=== PATIENT | female | born 1980 | race Caucasian/White ===

== ENCOUNTER 2018-06-20 07:12 | Emergency (ER) | payer OTHER ==
[~2018-06-20] VITALS: Ht 167.6 cm; Wt 72.6 kg
[2018-06-20 07:20] VITALS: BP 142/61
--- NOTE | 2018-06-20 07:24 | ED.ADGEN ---
Past History Past Medical History: No Pertinent History Past Surgical History: No Surgical History Smoking: Non-smoker Drug Use: None Adult General Chief Complaint Chief Complaint Left elbow injury post-fall HPI HPI Patient tripped over a cat while going up stairs at 6:30 AM this morning landing on her left elbow with injury. She notes no other injury. She has tenderness at her left elbow though she has intact range of motion. Review of Systems Review of Systems Constitutional: Denies fever or chills Eyes: Denies change in visual acuity, redness, or eye pain HENT: Denies nasal congestion or sore throat Respiratory: Denies cough or shortness of breath Cardiovascular: Denies chest pain GI: Denies abdominal pain, nausea, vomiting, bloody stools or diarrhea : Denies dysuria or hematuria Musculoskeletal: Denies back pain, with left elbow tenderness, no swelling or ecchymosis intact distal neurovascular exam is intact Integument: Denies rash or skin lesions Neurologic: Denies headache, focal weakness or sensory changes Endocrine: Denies polyuria or polydipsia All other systems were reviewed and found to be within normal limits, except as documented in this note. Allergies Allergies Allergies Coded Allergies Type Severity Reaction Last Updated Verified No Known Drug Allergies 06/20/18 No Physical Exam Physical Exam Constitutional: Well developed, well nourished, no acute distress, non-toxic appearance. HENT: Normocephalic, atraumatic, bilateral external ears normal, oropharynx moist, no oral exudates, nose normal. Eyes: PERRLA, EOMI, conjunctiva normal, no discharge. Neck: Normal range of motion, no tenderness, supple, no stridor. Cardiovascular:Heart rate regular rhythm, no murmur Lungs & Thorax: Bilateral breath sounds clear to auscultation Abdomen: Bowel sounds normal, soft, no tenderness, no masses, no pulsatile masses. Skin: Warm, dry, no erythema, no rash. Back: No tenderness, no CVA tenderness. Extremities: With left elbow tenderness along the olecranon, no swelling, no ecchymosis, no cyanosis, no clubbing, ROM intact, no edema. Neurologic: Alert and oriented X 3, normal motor function, normal sensory function, no focal deficits noted. Distal sensation of left upper extremity is intact to light touch and position sense. Left hand has intact range of motion with normal thumb finger apposition. Psychologic: Affect normal, judgement normal, mood normal. Current Patient Data Vital Signs Vital Signs Date Time Temp Pulse Resp B/P (MAP) Pulse Ox O2 Delivery O2 Flow Rate FiO2 06/20/18 07:20 97.9 74 18 98 Room Air EKG EKG [] Radiology/Procedures Radiology/Procedures [address] [id number] IMAGING REPORT Signed PATIENT: TOÑA MADISON ACCOUNT: [id number] : 1980 LOCATION: ER AGE: 37 SEX: F EXAM STATUS: REG ER ORD. PHYSICIAN: JAZZ SHEA MD REASON: pain/fall PROCEDURE: ELBOW LEFT 3V Left elbow, 3 views, 06/20/2018: HISTORY: Elbow injury after a fall No fracture or dislocation is identified. There is no radiographic evidence of a joint effusion. IMPRESSION: No significant left elbow abnormality is detected. Electronically signed by: David Jovel MD (06/20/2018 7:52 AM) [facility] DICTATED AND SIGNED BY: DAVID JOVEL MD DATE: 06/20/18 0752 CC: JAZZ SHEA MD; PCP,NO ~ Course & Med Decision Making Course & Med Decision Making Patient presents with left elbow injury post-fall DDx-fracture, contusion, dislocation, sprain Patient was stable in the emergency department. DNVI. Elbow x-ray was unremarkable. No fracture or dislocation. Patient was given her x-ray results and advised follow with her primary doctor. Patient given prescription of Motrin for pain Final Impression Final Impression Clinical impression Left elbow contusion Dragangelica Disclaimer Dragon Disclaimer This electronic medical record was generated, in whole or in part, using a voice recognition dictation system. Departure Departure: Impression: Primary Impression: Left elbow contusion Disposition: 01 HOME, SELF-CARE Condition: STABLE Referrals: ELFEGO TOPETE MD Follow-up in 2 days for further evaluation Patient Instructions: Elbow Contusion, [id number] Additional Instructions: Follow-up with your primary doctor for further evaluation. If you develop worse pain, swelling, weakness, numbness return to the emergency department. Scripts Ibuprofen (IBUPROFEN) 800 Mg Tablet 1 TAB PO TID, #15 TAB Prov: JAZZ SHEA MD 06/20/18 JAZZ SHEA MD Jun 20, 2018 07:24
--- NOTE | 2018-06-20 07:55 | RAD ---
Left elbow, 3 views, 06/20/2018: HISTORY: Elbow injury after a fall No fracture or dislocation is identified. There is no radiographic evidence of a joint effusion. IMPRESSION: No significant left elbow abnormality is detected. Electronically signed by: David Brown MD (06/20/2018 7:52 AM) [facility]
[2018-06-20] MEDS ORDERED: IBUP800T19 PO (07:58)
== END 2018-06-20 08:15 | disposition home or self-care (01) ==
LOC: ER 07:12
DX: S50.02XA Contusion of left elbow, initial encounter (principal); W01.0XXA Fall on same level from slipping, tripping and stumbling without subsequent striking against object, initial encounter; Y93.89 Activity, other specified; Y92.89 Other specified places as the place of occurrence of the external cause; Y99.8 Other external cause status
CPT/HCPCS: 73080; 99284

== ENCOUNTER 2019-07-21 12:13 | Emergency (ER) | payer OTHER ==
[~2019-07-21] VITALS: Ht 167.6 cm; Wt 71.7 kg
[~2019-07-21 12:13] MED LIST: IBUP800T19 PO
[2019-07-21] MEDS ORDERED: ONDANSETRON PF 4 MG/2 ML VIAL. IV ONE (12:30)
[2019-07-21] MEDS ORDERED: IV NORMAL SALINE 1,000ML 1,000 ML IV ONE (12:30)
--- NOTE | 2019-07-21 12:49 | PHYS DOC ---
Past History Past Medical History: No Pertinent History Past Surgical History: No Surgical History Smoking: Non-smoker Alcohol Use: None Drug Use: None Adult General Chief Complaint Chief Complaint: NAUSEA/VOMITING/DIARRHEA HPI HPI 38-year-old female presents with lower abdominal pain and diarrhea. The patient started with diarrhea 4 days ago. She seems to have an episode every time she eats or drinks anything. He has had decreased appetite. On the second day, she started to have some lower abdominal cramping. Her stool has not been bloody. She has not measured a fever, but has had chills. No history of diverticulosis or diverticulitis. 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 The patient has had nausea, but no vomiting. Review of Systems Review of Systems Constitutional: Denies fever or chills [] Eyes: Denies change in visual acuity, redness, or eye pain [] HENT: Denies nasal congestion or sore throat [] Respiratory: Denies cough or shortness of breath [] Cardiovascular: No additional information not addressed in HPI [] GI: abdominal pain, nausea, diarrhea. [] : Denies dysuria or hematuria [] Musculoskeletal: Denies back pain or joint pain [] Integument: Denies rash or skin lesions [] Neurologic: Denies headache, focal weakness or sensory changes [] Endocrine: Denies polyuria or polydipsia [] All other systems were reviewed and found to be within normal limits, except as documented in this note. Current Medications Current Medications Current Medications Medications (Trade) Dose Ordered Sig/[facility] Start Time Stop Time Status Last Admin Dose Admin Ondansetron HCl (Zofran) 4 mg 1X ONCE 07/21/19 12:30 07/21/19 12:31 DC Sodium Chloride 1,000 ml @ 1,000 mls/hr 1X ONCE 07/21/19 12:30 07/21/19 13:29 Allergies Allergies Allergies Coded Allergies Type Severity Reaction Last Updated Verified No Known Drug Allergies 06/20/18 No Physical Exam Physical Exam Constitutional: Well developed, well nourished, no acute distress, non-toxic dimitris earance. [] HENT: Normocephalic, atraumatic, bilateral external ears normal, oropharynx moist, no oral exudates, nose normal. [] Eyes: PERRLA, EOMI, conjunctiva normal, no discharge. [] Neck: Normal range of motion, no tenderness, supple, no stridor. [] Cardiovascular:Heart rate regular rhythm, no murmur [] Lungs & Thorax: Bilateral breath sounds clear to auscultation [] Abdomen: Bowel sounds normal, soft, mild right lower quadrant and left lower quadrant tenderness, no masses, no pulsatile masses. [] Skin: Warm, dry, no erythema, no rash. [] Back: No tenderness, no CVA tenderness. [] Extremities: No tenderness, no cyanosis, no clubbing, ROM intact, no edema. [] Neurologic: Alert and oriented X 3, normal motor function, normal sensory function, no focal deficits noted. [] Psychologic: Affect normal, judgement normal, mood normal. [] EKG EKG [] Radiology/Procedures Radiology/Procedures [] Impressions: CT ABD PELV W/ IV CONTRST ONLY Indication: Lower abdominal pain. Exposure: One or more of the following individualized dose reduction techniques were utilized for this examination: 1. Automated exposure control 2. Adjustment of the mA and/or kV according to patient size 3. Use of iterative reconstruction technique. Technique: Intravenous contrast was given. No oral contrast per request. Comparison: None FINDINGS: Partially visualized breast implants. Lung bases are clear. Liver and spleen appear unremarkable. Pancreas appears unremarkable. No evidence of adrenal mass. Kidneys demonstrate symmetric enhancement. Low-density lesion at the upper pole the left kidney measures 14 mm and 5 Hounsfield units, most compatible with a cyst. There appears to be some scarring or deformity of the adjacent left upper pole renal tissue. There is also some low-density in the lower pole the right kidney, could represent another small lesion such as a cyst with some renal cortical atrophy. No hydronephrosis is seen. No calcified gallstone. Aorta is nonaneurysmal. No significant lymph node enlargement. No significant small bowel distention. Limited GI tract exam without oral contrast. Mild wall thickening involving most of the colon, greatest at the descending and sigmoid colon to rectum. No definite paracolonic stranding. Mild stool in the colon. The appendix, if present, is not clearly visualized. No significant pneumoperitoneum. Mild free pelvic fluid is identified, measures 4 Hounsfield units compatible with simple content. Low-density lesion in the right adnexa measuring about 3 cm and 8 Hounsfield units, compatible with an ovarian cyst. Smaller cysts or follicles in the left ovary. No definite urinary bladder abnormality. Degenerative changes at the lumbosacral junction. No acute fracture or aggressive bone destruction. IMPRESSION: 1. Mild free pelvic fluid, could be physiologic. Right adnexal lesion measuring 3 cm, most likely an ovarian cyst. 2. Low-density lesion at the upper pole of the left kidney measuring 14 mm, may represent a cyst. There is some renal cortical scarring or atrophy involving the surrounding left upper pole tissue. There are some similar changes at the lower pole of the right kidney. Therefore, nonemergent further workup with MR or ultrasound of the kidneys could be of benefit for further evaluation. 3. Diffuse colonic wall thickening, greatest at the descending and sigmoid colon to the rectum. Consider mild colitis, although nondistention could contribute to this appearance. Electronically signed by: Reymundo Chadwick MD (07/21/2019 2:19 PM) [id number] DICTATED AND SIGNED BY: REYMUNDO CHADWICK MD DATE: 07/21/19 1414 CC: MICHELLE MARTINEZ DO; PCP,UNKNOWN ~ Course & Med Decision Making Course & Med Decision Making Pertinent Labs and Imaging studies reviewed. (See chart for details) The patient's labs are unremarkable. Her urinalysis is unremarkable. She is not . Her CT scan shows possible colitis. There are also incidental findings related to her kidneys. See official report for more details. I will go in place the patient on Augmentin for 7 days presuming infectious colitis. She is stable for discharge at this time. [] Dragon Disclaimer Dragon Disclaimer This electronic medical record was generated, in whole or in part, using a voice recognition dictation system. Departure Departure: Impression: Primary Impression: Colitis Disposition: 01 HOME, SELF-CARE Condition: STABLE Referrals: PCP,UNKNOWN (PCP) Patient Instructions: Colitis Scripts Amoxicillin/Potassium Clav (AUGMENTIN 875-125 TABLET) 1 Each Tablet 1 TAB PO BID for colitis, #14 TAB Prov: MICHELLE MARTINEZ DO 07/21/19 MICHELLE MARTINEZ DO Jul 21, 2019 12:49
[2019-07-21 12:52] LABS: BASO % 1 % (0-3); EOS # 0.1 x10^3/uL (0.0-0.7); EOS % 1 % (0-3); HEMATOCRIT 41.4 % (36.0-47.0); LYMPH # 1.6 x10^3/uL (1.0-4.8); LYMPH % 28 % (24-48); MEAN CORPUSCULAR HEMOGLOBIN 32 pg (25-35); MEAN CORPUSCULAR HGB CONC 34 g/dL (31-37); MEAN CORPUSCULAR VOLUME 95 fL (79-100); MONO # 0.8 x10^3/uL (0.0-1.1); MONO % 14 % (0-9); NEUT # 3.4 x10^3uL (1.8-7.7); NEUT % 57 % (31-73); PLATELET COUNT 251 x10^3/uL (140-400); RED BLOOD COUNT 4.38 x10^6/uL (3.50-5.40); RED CELL DISTRIBUTION WIDTH 12.6 % (11.5-14.5)
[2019-07-21 13:02] LABS: BILIRUBIN,URINE NEG (NEG); CLARITY,URINE HAZY; COLOR,URINE YELLOW; GLUCOSE,URINE NEG (NEG); NITRITE,URINE NEG (NEG); UROBILINOGEN,URINE 0.2 mg/dL (0.2 mg/dL)
[2019-07-21 13:03] LABS: AMORPHOUS SEDIMENT,UR PRESENT /HPF; BACTERIA,URINE MOD /HPF (0-FEW); SQUAMOUS EPITHELIAL CELL,UR MANY /LPF
[2019-07-21 13:19] LABS: ALBUMIN 3.5 g/dL (3.4-5.0); ALBUMIN/GLOBULIN RATIO 0.9 (1.0-1.7); CALCIUM 8.6 mg/dL (8.5-10.1); CREATININE 0.9 mg/dL (0.6-1.0); GFR 70.1; POTASSIUM 3.5 mmol/L (3.5-5.1); TOTAL BILIRUBIN 0.4 mg/dL (0.2-1.0); TOTAL PROTEIN 7.3 g/dL (6.4-8.2)
[2019-07-21] MEDS ORDERED: IOHEXOL 300 MG/ML 75 ML VIAL. IV ONE (13:45)
--- NOTE | 2019-07-21 14:22 | RAD ---
CT ABD PELV W/ IV CONTRST ONLY Indication: Lower abdominal pain. Exposure: One or more of the following individualized dose reduction techniques were utilized for this examination: 1. Automated exposure control 2. Adjustment of the mA and/or kV according to patient size 3. Use of iterative reconstruction technique. Technique: Intravenous contrast was given. No oral contrast per request. Comparison: None FINDINGS: Partially visualized breast implants. Lung bases are clear. Liver and spleen appear unremarkable. Pancreas appears unremarkable. No evidence of adrenal mass. Kidneys demonstrate symmetric enhancement. Low-density lesion at the upper pole the left kidney measures 14 mm and 5 Hounsfield units, most compatible with a cyst. There appears to be some scarring or deformity of the adjacent left upper pole renal tissue. There is also some low-density in the lower pole the right kidney, could represent another small lesion such as a cyst with some renal cortical atrophy. No hydronephrosis is seen. No calcified gallstone. Aorta is nonaneurysmal. No significant lymph node enlargement. No significant small bowel distention. Limited GI tract exam without oral contrast. Mild wall thickening involving most of the colon, greatest at the descending and sigmoid colon to rectum. No definite paracolonic stranding. Mild stool in the colon. The appendix, if present, is not clearly visualized. No significant pneumoperitoneum. Mild free pelvic fluid is identified, measures 4 Hounsfield units compatible with simple content. Low-density lesion in the right adnexa measuring about 3 cm and 8 Hounsfield units, compatible with an ovarian cyst. Smaller cysts or follicles in the left ovary. No definite urinary bladder abnormality. Degenerative changes at the lumbosacral junction. No acute fracture or aggressive bone destruction. IMPRESSION: 1. Mild free pelvic fluid, could be physiologic. Right adnexal lesion measuring 3 cm, most likely an ovarian cyst. 2. Low-density lesion at the upper pole of the left kidney measuring 14 mm, may represent a cyst. There is some renal cortical scarring or atrophy involving the surrounding left upper pole tissue. There are some similar changes at the lower pole of the right kidney. Therefore, nonemergent further workup with MR or ultrasound of the kidneys could be of benefit for further evaluation. 3. Diffuse colonic wall thickening, greatest at the descending and sigmoid colon to the rectum. Consider mild colitis, although nondistention could contribute to this appearance. Electronically signed by: Maury Chadwick MD (07/21/2019 2:19 PM) [id number]
[2019-07-21] MEDS ORDERED: AMOX1TAB61 PO (14:31)
[2019-07-21 14:35] VITALS: BP 106/57
== END 2019-07-21 14:42 | disposition home or self-care (01) ==
LOC: ER 12:13
DX: K52.9 Noninfective gastroenteritis and colitis, unspecified (principal)
CPT/HCPCS: 36415; 74177; 80053; 81001; 81025; 85025; 87086; 96374; 99285; J2405; Q9967; J7030

== ENCOUNTER 2019-11-05 10:48 | Emergency (ER) | payer OTHER ==
[~2019-11-05] VITALS: Ht 167.6 cm; Wt 68.7 kg
[2019-11-05 10:48] VITALS: BP 126/79
[~2019-11-05 10:48] MED LIST changes: +AMOX1TAB61 PO
[2019-11-05] MEDS ORDERED: IV NORMAL SALINE 1,000ML 1,000 ML IV SCH (11:02)
[2019-11-05] MEDS ORDERED: HYOSCYAMINE 0.125 MG TAB.RAPDIS PO ONE (11:15)
[2019-11-05] MEDS ORDERED: KETOROLAC 30 MG/ML VIAL. IVP ONE (11:15)
--- NOTE | 2019-11-05 11:22 | PHYS DOC ---
Past History Past Medical History: Fibromyalgia, Other Past Surgical History: Appendectomy Smoking: Non-smoker Alcohol Use: None Drug Use: None Adult General Chief Complaint Chief Complaint: ABDOMINAL PAIN HPI HPI Patient is a 38-year-old female presents complaining of right lower quadrant abdominal pain that has been present for the past 2 days, it is baseline achiness but periods of sharp discomfort. She has been seen and evaluated for this twice previously with ultrasounds that did not show any acute process. 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 Movement does not seem to make it worse or better. No significant relief with 400 mg of ibuprofen. She has had some nausea without any vomiting. She notes that she has had vaginal bleeding. Her periods are irregular with her most recent one being approximately 2 weeks previous. No heavy vaginal bleeding. Part of her current outpatient evaluation is for the possibility of a hysterectomy. She denies any diarrhea. Denies any recent travel or trauma. She reports ketorolac has improved the discomfort previously.[] Review of Systems Review of Systems Constitutional: Denies fever or chills [] Eyes: Denies change in visual acuity, redness, or eye pain [] HENT: Denies nasal congestion or sore throat [] Respiratory: Denies cough or shortness of breath [] Cardiovascular: No chest pain or palpitations[] GI: The history of present illness[] : Denies dysuria or hematuria [] Musculoskeletal: Denies back pain or joint pain [] Integument: Denies rash or skin lesions [] Neurologic: Denies headache, focal weakness or sensory changes [] Endocrine: Denies polyuria or polydipsia [] All other systems were reviewed and found to be within normal limits, except as documented in this note. Allergies Allergies Allergies Coded Allergies Type Severity Reaction Last Updated Verified No Known Drug Allergies 07/21/19 No Physical Exam Physical Exam Constitutional: Well developed, well nourished, no acute distress, non-toxic appearance. [] HENT: Normocephalic, atraumatic, bilateral external ears normal, oropharynx moist, no oral exudates, nose normal. [] Eyes: PERRLA, EOMI, conjunctiva normal, no discharge. [] Neck: Normal range of motion, no tenderness, supple, no stridor. [] Cardiovascular:Heart rate regular rhythm, no murmur [] Lungs & Thorax: Bilateral breath sounds clear to auscultation [] Abdomen: Bowel sounds normal, soft, no tenderness, no masses, no pulsatile masses. [] Skin: Warm, dry, no erythema, no rash. [] Back: No tenderness, no CVA tenderness. [] Extremities: No tenderness, no cyanosis, no clubbing, ROM intact, no edema. [] Neurologic: Alert and oriented X 3, normal motor function, normal sensory function, no focal deficits noted. [] Psychologic: Affect normal, judgement normal, mood normal. [] Current Patient Data Lab Results Laboratory Tests Test 11/05/19 10:59 11/05/19 11:15 11/05/19 11:42 Urine Opiates Screen Neg Urine Methadone Screen Neg Urine Barbiturates Neg Urine Phencyclidine Screen Neg Urine Amphetamine/Methamphetamine Pos Urine Benzodiazepines Screen Neg Urine Cocaine Screen Neg Urine Cannabinoids Screen Neg Urine Ethyl Alcohol Neg Bedside Urine HCG, Qualitative hcg negative White Blood Count 14.7 x10^3/uL Red Blood Count 4.64 x10^6/uL Hemoglobin 14.4 g/dL Hematocrit 43.0 % Mean Corpuscular Volume 93 fL Mean Corpuscular Hemoglobin 31 pg Mean Corpuscular Hemoglobin Concent 34 g/dL Red Cell Distribution Width 12.6 % Platelet Count 280 x10^3/uL Neutrophils (%) (Auto) 82 % Lymphocytes (%) (Auto) 10 % Monocytes (%) (Auto) 7 % Eosinophils (%) (Auto) 1 % Basophils (%) (Auto) 0 % Neutrophils # (Auto) 12.1 x10^3uL Lymphocytes # (Auto) 1.4 x10^3/uL Monocytes # (Auto) 1.0 x10^3/uL Eosinophils # (Auto) 0.2 x10^3/uL Basophils # (Auto) 0.1 x10^3/uL Sodium Level 137 mmol/L Potassium Level 3.7 mmol/L Chloride Level 101 mmol/L Carbon Dioxide Level 28 mmol/L Anion Gap 8 Blood Urea Nitrogen 14 mg/dL Creatinine 0.8 mg/dL Estimated GFR (Cockcroft-Gault) 80.3 BUN/Creatinine Ratio 18 Glucose Level 80 mg/dL Calcium Level 9.0 mg/dL Total Bilirubin 0.6 mg/dL Aspartate Amino Transf (AST/SGOT) 22 U/L Alanine Aminotransferase (ALT/SGPT) 23 U/L Alkaline Phosphatase 89 U/L Total Protein 8.1 g/dL Albumin 4.0 g/dL Albumin/Globulin Ratio 1.0 Lipase 261 U/L Current Medications Medications (Trade) Dose Ordered Sig/Corin Route PRN Reason Start Time Stop Time Status Last Admin Dose Admin Sodium Chloride 1,000 ml @ 1,000 mls/hr Q1H IV 11/05/19 11:02 11/05/19 12:01 DC 11/05/19 11:52 Ketorolac Tromethamine (Toradol 30mg Vial) 30 mg 1X ONCE IVP 11/05/19 11:15 11/05/19 11:25 DC 11/05/19 11:52 Hyoscyamine (Anaspaz) 0.125 mg 1X ONCE PO 11/05/19 11:15 11/05/19 11:25 DC 11/05/19 11:52 EKG EKG [] Radiology/Procedures Radiology/Procedures PROCEDURE: CT ABDOMEN PELVIS WO CONTRAST Examination: CT of the abdomen pelvis without contrast HISTORY: History of right lower quadrant pain, nausea COMPARISON: 07/21/2019 TECHNIQUE: Axial CT images of the abdomen pelvis were performed without contrast. Coronal and sagittal reformats are performed. Exposure: One or more of the following individualized dose reduction techniques were utilized for this examination: 1. Automated exposure control 2. Adjustment of the mA and/or kV according to patient size 3. Use of iterative reconstruction technique FINDINGS: The bibasilar lungs are clear. No evidence of free air identified in the abdomen. The evaluation of the solid organs is limited due to lack of IV contrast. The evaluation of bowel is limited due to lack of oral contrast. The visualized noncontrasted liver, spleen, adrenals grossly appears unremarkable. Gallbladder is mildly distended. The stomach is mildly distended. The visualized pancreas grossly appears unremarkable. The small bowel is nondilated The appendix could not be identified. Feces and gas noted in the colon. Urinary bladder is mildly distended. No evidence of intrarenal collecting system calculi identified. Mild prominent appearing right ureter without obvious ureter calculus, however evaluation is limited due to multiple bowel loops which limits evaluation of the distal ureters. No evidence of lytic bony destructive lesion. IMPRESSION: 1. Questionable minimal prominence of the right ureter without obvious ureteral calculus. Evaluation of the ureters is limited due to multiple bowel loops. Urinary tract infection is not completely excluded. 2. The appendix is not identified.[] Course & Med Decision Making Course & Med Decision Making Pertinent Labs and Imaging studies reviewed. (See chart for details) Emergency department course: Patient arrived, was placed in bed, and tolerated exam well. IV access established, she was given IV fluids and pain medicines. She was transported to and from radiology with any complications. After return of laboratory and imaging findings, these were discussed with the patient voiced understanding. She did get some pain control with the medications administered. She was discharged in improved condition. Medical decision making: There is no evidence of an obstruction, perforation, kidney stone, urinary tract infection or pyelonephritis. No evidence of uncontrollable pain. No evidence of oral intake intolerance. No evidence of appendicitis since this has already been surgically removed. No pancreatitis or cholecystitis.[] Dragon Disclaimer Dragon Disclaimer This electronic medical record was generated, in whole or in part, using a voice recognition dictation system. Departure Departure: Impression: Primary Impression: Right lower quadrant abdominal pain Disposition: 01 HOME, SELF-CARE Condition: IMPROVED Referrals: NON,STAFF (PCP) Patient Instructions: Abdominal Pain Additional Instructions: Follow-up with your regular doctor in 2 days. Take medication as prescribed. Return to the ER if worsening pain or any other concerns. Scripts Meloxicam (MELOXICAM) 7.5 Mg Tablet 7.5 MG PO DAILY for PAIN, #20 TAB Prov: EZ JOHANSEN DO 11/05/19 Hyoscyamine Sulfate (LEVSIN) 0.125 Mg Tablet 0.125 MG PO QID for abdominal pain/cramping, #30 TAB Prov: EZ JOHANSEN DO 11/05/19 EZ JOHANSEN DO Nov 05, 2019 11:22
[2019-11-05 12:05] LABS: BARBITURATES NEG (NEG); BENZODIAZEPINES NEG (NEG); CANNABINOIDS NEG (NEG); COCAINE NEG (NEG); METHADONE NEG (NEG); OPIATES NEG (NEG); PHENCYCLIDINE NEG (NEG)
[2019-11-05 12:06] LABS: AMPHETAMINE/METHAMPHETAMINE POS (NEG)
[2019-11-05 12:13] LABS: BASO # 0.1 x10^3/uL (0.0-0.2); BASO % 0 % (0-3); EOS # 0.2 x10^3/uL (0.0-0.7); EOS % 1 % (0-3); HEMOGLOBIN 14.4 g/dL (12.0-15.5); LYMPH # 1.4 x10^3/uL (1.0-4.8); LYMPH % 10 % (24-48); MEAN CORPUSCULAR HEMOGLOBIN 31 pg (25-35); MEAN CORPUSCULAR HGB CONC 34 g/dL (31-37); MEAN CORPUSCULAR VOLUME 93 fL (79-100); MONO % 7 % (0-9); NEUT # 12.1 x10^3uL (1.8-7.7); NEUT % 82 % (31-73); PLATELET COUNT 280 x10^3/uL (140-400); RED BLOOD COUNT 4.64 x10^6/uL (3.50-5.40); RED CELL DISTRIBUTION WIDTH 12.6 % (11.5-14.5); WHITE BLOOD COUNT 14.7 x10^3/uL (4.0-11.0)
--- NOTE | 2019-11-05 12:15 | RAD ---
Examination: CT of the abdomen pelvis without contrast HISTORY: History of right lower quadrant pain, nausea COMPARISON: 07/21/2019 TECHNIQUE: Axial CT images of the abdomen pelvis were performed without contrast. Coronal and sagittal reformats are performed. Exposure: One or more of the following individualized dose reduction techniques were utilized for this examination: 1. Automated exposure control 2. Adjustment of the mA and/or kV according to patient size 3. Use of iterative reconstruction technique FINDINGS: The bibasilar lungs are clear. No evidence of free air identified in the abdomen. The evaluation of the solid organs is limited due to lack of IV contrast. The evaluation of bowel is limited due to lack of oral contrast. The visualized noncontrasted liver, spleen, adrenals grossly appears unremarkable. Gallbladder is mildly distended. The stomach is mildly distended. The visualized pancreas grossly appears unremarkable. The small bowel is nondilated The appendix could not be identified. Feces and gas noted in the colon. Urinary bladder is mildly distended. No evidence of intrarenal collecting system calculi identified. Mild prominent appearing right ureter without obvious ureter calculus, however evaluation is limited due to multiple bowel loops which limits evaluation of the distal ureters. No evidence of lytic bony destructive lesion. IMPRESSION: 1. Questionable minimal prominence of the right ureter without obvious ureteral calculus. Evaluation of the ureters is limited due to multiple bowel loops. Urinary tract infection is not completely excluded. 2. The appendix is not identified. Electronically signed by: Kehinde Ogden MD (11/05/2019 12:12 PM) [id number]
[2019-11-05 12:22] LABS: CREATININE 0.8 mg/dL (0.6-1.0); GFR 80.3; POTASSIUM 3.7 mmol/L (3.5-5.1); TOTAL BILIRUBIN 0.6 mg/dL (0.2-1.0); TOTAL PROTEIN 8.1 g/dL (6.4-8.2)
[2019-11-05] MEDS ORDERED: HYOS0.1264 PO (12:37)
[2019-11-05] MEDS ORDERED: MELO7.5T29 PO (12:37)
[2019-11-05 13:19] LABS: BILIRUBIN,URINE NEG (NEG); CLARITY,URINE CLEAR; COLOR,URINE YELLOW; GLUCOSE,URINE NEG (NEG)
[2019-11-05 13:20] LABS: BACTERIA,URINE 0 /HPF (0-FEW); NITRITE,URINE NEG (NEG); SQUAMOUS EPITHELIAL CELL,UR MOD /LPF; UROBILINOGEN,URINE 0.2 mg/dL (0.2 mg/dL); WBC,URINE OCC /HPF (0-4)
[2019-11-05 19:38] LABS: BILIRUBIN,URINE NEG (NEG); CLARITY,URINE CLEAR; COLOR,URINE YELLOW; GLUCOSE,URINE NEG (NEG); NITRITE,URINE NEG (NEG); UROBILINOGEN,URINE 0.2 mg/dL (0.2 mg/dL)
== END 2019-11-05 12:42 | disposition home or self-care (01) ==
LOC: ER 10:48
DX: R10.31 Right lower quadrant pain (principal); N93.9 Abnormal uterine and vaginal bleeding, unspecified; M79.7 Fibromyalgia; Z90.89 Acquired absence of other organs
CPT/HCPCS: 36415; 74176; 80053; 80307; 81003; 81025; 83690; 85025; 96374; 99285; J1885; 81001; J7030

== ENCOUNTER 2019-11-07 15:43 | Emergency (ER) | payer OTHER ==
[~2019-11-07] VITALS: Ht 167.6 cm; Wt 68.8 kg
[~2019-11-07 15:43] MED LIST changes: +HYOS0.1264 PO; +MELO7.5T29 PO
[2019-11-07 15:52] VITALS: BP 125/75
[2019-11-07] MEDS ORDERED: GUAI-105 PO (16:14)
[2019-11-07] MEDS ORDERED: GUAI120L35 PO (16:14)
[2019-11-07] MEDS ORDERED: PROM5SYR2 PO (16:17)
[2019-11-07] MEDS ORDERED: KETOROLAC 60 MG/2 ML VIAL. IM ONE (16:30)
[2019-11-07] MEDS ORDERED: MORPHINE SULFATE 10 MG/ML SYRINGE. IM ONE (16:30)
[2019-11-07] MEDS ORDERED: ONDANSETRON ODT 4 MG TAB.RAPDIS PO ONE (16:30)
--- NOTE | 2019-11-07 16:38 | PHYS DOC ---
Past History Past Medical History: Fibromyalgia, Other Additional Past Medical Histor: idiopathic hypersomnia, Past Surgical History: Appendectomy, Other Additional Past Surgical Histo: abdominoplasty Smoking: Non-smoker Alcohol Use: None Drug Use: None Adult General Chief Complaint Chief Complaint: FLU SYMPTOM HPI HPI Patient is a 38-year-old female presents with a day #2 of flulike symptoms. Patient reports nasal congestion, rhinorrhea, bodies, sore throat and inability to sleep. Patient was evaluated at local [facility] and diagnosed with flu. Tamiflu, albuterol, Mucinex prescribed. Additionally, patient is taking ibuprofen. Reports minimal relief of symptoms. Denies headache, neck stiffness, rigidity, rash, nausea vomiting or increased shortness of breath. Denies wheezing. No history of asthma. No other acute symptoms or complaints. Last menstrual period was 7 days ago.[] Review of Systems Review of Systems Review symptoms as per history of present illness. All other review symptoms are negative. All other systems were reviewed and found to be within normal limits, except as documented in this note. Current Medications Current Medications Current Medications Medications (Trade) Dose Ordered Sig/Corin Start Time Stop Time Status Last Admin Dose Admin Ketorolac Tromethamine (Toradol Im) 60 mg 1X ONCE 11/07/19 16:30 11/07/19 16:31 DC 11/07/19 16:22 60 MG Morphine Sulfate (Morphine 10mg Syringe) 10 mg 1X ONCE 11/07/19 16:30 11/07/19 16:31 DC 11/07/19 16:22 10 MG Ondansetron HCl (Zofran Odt) 4 mg 1X ONCE 11/07/19 16:30 11/07/19 16:31 DC 11/07/19 16:22 4 MG Allergies Allergies Allergies Coded Allergies Type Severity Reaction Last Updated Verified No Known Drug Allergies 07/21/19 No Physical Exam Physical Exam Constitutional: Well developed, moderate discomfort secondary to discomfort.. [] HENT: Normocephalic, no sinus tenderness, bilateral external ears normal, oropharynx, mild erythema, no oral exudates, nose and nose congestion, rhinorrhea. [] Eyes: PERRLA, EOMI, conjunctiva normal, no discharge. [] Neck: Normal range of motion, no meningismus. [] Cardiovascular:Heart rate regular rhythm, no murmur [] Lungs & Thorax: Bilateral breath sounds clear to auscultation, no wheezing [] Abdomen: Bowel sounds normal, soft, no tenderness. [] Skin: Warm, dry, no erythema, no rash. [] Back: No tenderness. [] Extremities: No tenderness, no edema. [] Neurologic: Alert and oriented X 3, normal motor function, normal sensory function, no focal deficits noted. [] Psychologic: Affect normal, judgement normal, mood normal. [] Current Patient Data Vital Signs Vital Signs Date Time Temp Pulse Resp B/P (MAP) Pulse Ox O2 Delivery O2 Flow Rate FiO2 11/07/19 16:22 18 98 Room Air 11/07/19 15:52 99.7 88 EKG EKG [] Radiology/Procedures Radiology/Procedures [] Course & Med Decision Making Course & Med Decision Making Pertinent Labs and Imaging studies reviewed. (See chart for details) [Flulike illness respiratory compromise. Vital signs stable. Recommend she supportive care with rest and PCP follow-up. Morphine, Toradol and Zofran given prior to ED departure.] Dragon Disclaimer Dragon Disclaimer This electronic medical record was generated, in whole or in part, using a voice recognition dictation system. Departure Departure: Impression: Primary Impression: Influenza-like illness Disposition: HOME, SELF-CARE Condition: STABLE Patient Instructions: Influenza, Adult, [id number] Additional Instructions: Increase fluids and take Mucinex D for nasal congestion, 600 mg of ibuprofen 3 times daily for body aches and fever and Tussionex as needed for cough and sore throat. Follow-up with your PCP in 3-5 days if symptoms persist. Return to the ED if new or worsening symptoms. Scripts Promethazine HCl/Codeine (Prometh-Codein 6.25-10 mg/5 ml) 5 Ml Syrup 5 ML PO PRN Q4-6HRS PRN for cough MDD 30 Milliliter(s), #120 ML 0 Refills Prov: MICHELLE SIEGEL DO 11/07/19 Guaifenesin/Pseudoephedrne Hcl (MUCINEX D ER 1,200-120 MG TAB) 1 Each Tab.er.12h 1 TAB PO BID for 12 Days, #24 TAB 0 Refills Prov: MICHELLE SIEGEL DO 11/07/19 MICHELLE SIEGEL DO Nov 07, 2019 16:38
== END 2019-11-07 16:33 | disposition home or self-care (01) ==
LOC: ER 15:43
DX: J11.1 Influenza due to unidentified influenza virus with other respiratory manifestations (principal); M79.7 Fibromyalgia
CPT/HCPCS: 96372; 99284; J1885; J2270; Q0162